=== PATIENT | male | born 1935 | race Caucasian/White ===

== ENCOUNTER 2019-06-03 07:39 | Emergency (ER) | payer MEDICARE ==
[~2019-06-03] VITALS: Ht 177.8 cm; Wt 88.5 kg
--- NOTE | 2019-06-03 08:17 | PHYS DOC ---
Past Medical History Past Medical History: A-Fib, High Cholesterol, Hypertension Smoking: Cigarettes (The patient is a nonsmoker.) Adult General Chief Complaint Chief Complaint: LOWER EXT PAIN HPI HPI Patient is a pleasant 83-year-old female presents to the emergency department for evaluation. He states last night, he developed atraumatic left foot pain, located in his first MTP joint. He denies any fevers, or any injuries. Ambulation significantly worsens his pain, as does palpation. There are no alleviating factors to her symptoms. He has no previously known history of gout that he is aware of. He does have a past history of atrial fibrillation and takes Eliquis. He denies any chest pain, or shortness of breath, or any other concerning symptoms. Review of Systems Review of Systems Constitutional: Denies fever or chills [] Eyes: Denies change in visual acuity, redness, or eye pain [] HENT: Denies nasal congestion or sore throat [] Respiratory: Denies cough or shortness of breath [] Cardiovascular: The patient denies any shortness of breath, chest pain, palpitations, or orthopnea[] GI: Denies abdominal pain, nausea, vomiting, bloody stools or diarrhea [] : Denies dysuria or hematuria [] Musculoskeletal: Denies back pain or joint pain except as noted in the history of present illness [] Integument: Denies rash or skin lesions [] Neurologic: Denies headache, focal weakness or sensory changes [] Endocrine: Denies polyuria or polydipsia [] All other systems were reviewed and found to be within normal limits, except as documented in this note. Current Medications Current Medications Current Medications Medications (Trade) Dose Ordered Sig/Andrei Start Time Stop Time Status Last Admin Dose Admin Colchicine (Colcrys) 1.2 mg 1X ONCE 06/03/19 08:45 06/03/19 08:46 DC 06/03/19 08:59 1.2 MG Indomethacin (Indocin) 25 mg 1X 06/03/19 08:45 06/03/19 09:56 DC 06/03/19 08:59 25 MG Allergies Allergies Allergies Coded Allergies Type Severity Reaction Last Updated Verified No Known Drug Allergies 06/03/19 No Physical Exam Physical Exam PHYSICAL EXAM: CONSTITUTIONAL: Well developed, well nourished HEAD: normocephalic, atraumatic EENT: PERRL, EOMI. Conjunctivae normal color, sclerae non-icteric; moist mucous membranes. NECK: Supple, non-tender; no meningismus. LUNGS: Lungs CTA, breathing even and unlabored. Normal air movement. HEART: Regular rate and rhythm, no murmur CHEST: No deformity; non-tender ABDOMEN: The abdomen is soft, and non-tender, no masses or bruits. EXTREM: Normal ROM; no deformity, no calf tenderness. Normal pulses palpable in all extremities. There is no pedal edema. There is mild erythema, and tenderness to palpation in the first MTP joint of the left foot, without significant warmth. The remainder of the foot is unremarkable and nontender, strong dorsalis pedis pulses present, the left ankle and remainder the left lower extremity are unremarkable. SKIN: No rash; no diaphoresis NEURO: Alert; normal speech and cognition; CN's grossly intact; strength grossly intact without focal deficit. BACK: No CVA TTP. Current Patient Data Vital Signs Vital Signs Date Time Temp Pulse Resp B/P (MAP) Pulse Ox O2 Delivery O2 Flow Rate FiO2 06/03/19 08:00 97.7 71 17 148/68 (94) 97 Room Air 97.7 Lab Values Laboratory Tests Test 06/03/19 08:35 White Blood Count 7.2 x10^3/uL (4.0-11.0) Red Blood Count 4.39 x10^6/uL (4.30-5.70) Hemoglobin 13.8 g/dL (13.0-17.5) Hematocrit 39.9 % (39.0-53.0) Mean Corpuscular Volume 91 fL (79-100) Mean Corpuscular Hemoglobin 32 pg (25-35) Mean Corpuscular Hemoglobin Concent 35 g/dL (31-37) Red Cell Distribution Width 13.9 % (11.5-14.5) Platelet Count 163 x10^3/uL (140-400) Neutrophils (%) (Auto) 74 % (31-73) H Lymphocytes (%) (Auto) 16 % (24-48) L Monocytes (%) (Auto) 9 % (0-9) Eosinophils (%) (Auto) 2 % (0-3) Basophils (%) (Auto) 0 % (0-3) Neutrophils # (Auto) 5.3 x10^3/uL (1.8-7.7) Lymphocytes # (Auto) 1.1 x10^3/uL (1.0-4.8) Monocytes # (Auto) 0.6 x10^3/uL (0.0-1.1) Eosinophils # (Auto) 0.1 x10^3/uL (0.0-0.7) Basophils # (Auto) 0.0 x10^3/uL (0.0-0.2) Erythrocyte Sedimentation Rate 15 (0-15) Sodium Level 142 mmol/L (136-145) Potassium Level 4.3 mmol/L (3.5-5.1) Chloride Level 106 mmol/L (98-107) Carbon Dioxide Level 29 mmol/L (21-32) Anion Gap 7 (6-14) Blood Urea Nitrogen 27 mg/dL (8-26) H Creatinine 1.4 mg/dL (0.7-1.3) H Estimated GFR (Cockcroft-Gault) 48.4 Glucose Level 97 mg/dL (70-99) Calcium Level 9.0 mg/dL (8.5-10.1) C-Reactive Protein, Quantitative < 0.5 mg/L (0-3.3) Laboratory Tests 06/03/19 08:35 Laboratory Tests 06/03/19 08:35 EKG EKG [] Radiology/Procedures Radiology/Procedures [PROCEDURE: FOOT LEFT 3V Examination: FOOT LEFT 3V History: Pain Comparison/Correlation: None Findings: Total of 3 images of the left foot were obtained. Joint spaces are unremarkable. Small calcaneal spurs present. Enthesopathy at the distal Achilles tendon attachment site noted. There is a linear lucency involving the fifth digit proximal phalanx at its distal metaphyseal aspect extending nearly to the epiphysis. This is seen only on the AP view. Impression: Linear lucency involving the fifth digit proximal phalanx. Correlate with symptoms for possibly of a nondisplaced fracture. First metatarsophalangeal joint is unremarkable for the patient's age.] Course & Med Decision Making Course & Med Decision Making Pertinent Labs and Imaging studies reviewed. (See chart for details) []9:30 AM: Patient's condition remains stable. There is no tenderness to palpation at the fifth digit, to correlate with finding on x-ray, I suspect that this is a skin fold shadow appearing on the x-ray. Uric acid level is currently pending. Clinical presentation is consistent with gout. Rest home care with the patient, the need for close PCP follow-up, and return precautions. Patient reports better pain tolerance and ambulation tolerance after administered medications. Dragon Disclaimer Dragon Disclaimer This electronic medical record was generated, in whole or in part, using a voice recognition dictation system. Departure Departure Impression: Primary Impression: Podagra Disposition: HOME, SELF-CARE Condition: STABLE Referrals: UNKNOWN PCP NAME (PCP) Patient Instructions: Gout, Igls-oy-Gxri Scripts Indomethacin (INDOMETHACIN) 25 Mg Capsule 1 CAP PO TID PRN for PAIN, #20 CAP Prov: AGATA TRAVIS MD 06/03/19 Colchicine (COLCRYS) 0.6 Mg Tablet 1 TAB PO BID PRN for PAIN, #30 TAB 0 Refills Prov: AGATA TRAVIS MD 06/03/19 AGATA TRAVIS MD Jun 03, 2019 08:17
--- NOTE | 2019-06-03 08:29 | RAD ---
Examination: FOOT LEFT 3V History: Pain Comparison/Correlation: None Findings: Total of 3 images of the left foot were obtained. Joint spaces are unremarkable. Small calcaneal spurs present. Enthesopathy at the distal Achilles tendon attachment site noted. There is a linear lucency involving the fifth digit proximal phalanx at its distal metaphyseal aspect extending nearly to the epiphysis. This is seen only on the AP view. Impression: Linear lucency involving the fifth digit proximal phalanx. Correlate with symptoms for possibly of a nondisplaced fracture. First metatarsophalangeal joint is unremarkable for the patient's age. Electronically signed by: Arun Cline MD (06/03/2019 8:26 AM) [facility]
[2019-06-03] MEDS ORDERED: COLCHICINE 0.6 MG TABLET PO ONE (08:45)
[2019-06-03] MEDS ORDERED: INDOMETHACIN 25 MG CAPSULE. PO SCH (08:45)
[2019-06-03 08:47] LABS: BASO % 0 % (0-3); EOS # 0.1 x10^3/uL (0.0-0.7); EOS % 2 % (0-3); HEMATOCRIT 39.9 % (39.0-53.0); HEMOGLOBIN 13.8 g/dL (13.0-17.5); LYMPH # 1.1 x10^3/uL (1.0-4.8); LYMPH % 16 % (24-48); MEAN CORPUSCULAR HEMOGLOBIN 32 pg (25-35); MEAN CORPUSCULAR HGB CONC 35 g/dL (31-37); MEAN CORPUSCULAR VOLUME 91 fL (79-100); MONO # 0.6 x10^3/uL (0.0-1.1); MONO % 9 % (0-9); NEUT # 5.3 x10^3/uL (1.8-7.7); NEUT % 74 % (31-73); PLATELET COUNT 163 x10^3/uL (140-400); RED BLOOD COUNT 4.39 x10^6/uL (4.30-5.70); RED CELL DISTRIBUTION WIDTH 13.9 % (11.5-14.5); WHITE BLOOD COUNT 7.2 x10^3/uL (4.0-11.0)
[2019-06-03 09:00] LABS: ANION GAP 7 (6-14); BLOOD UREA NITROGEN 27 mg/dL (8-26); CARBON DIOXIDE 29 mmol/L (21-32); CHLORIDE 106 mmol/L (98-107); CREATININE 1.4 mg/dL (0.7-1.3); GFR 48.4; GLUCOSE 97 mg/dL (70-99); POTASSIUM 4.3 mmol/L (3.5-5.1); SODIUM 142 mmol/L (136-145)
[2019-06-03 09:03] LABS: C-REACTIVE PROTEIN < 0.5 mg/L (0-3.3)
[2019-06-03] MEDS ORDERED: INDO25CA21 PO (09:38)
[2019-06-03] MEDS ORDERED: COLC0.6T34 PO (09:38)
[2019-06-03 09:56] VITALS: BP 141/69
== END 2019-06-03 09:56 | disposition home or self-care (01) ==
LOC: EDBD 07:39 → ER 07:39
DX: M10.9 Gout, unspecified (principal); I48.91 Unspecified atrial fibrillation; E78.00 Pure hypercholesterolemia, unspecified; I10 Essential (primary) hypertension
CPT/HCPCS: 36415; 73630; 80048; 84550; 85025; 85651; 86140; 99285-25